=== PATIENT | male | born 1965 | race Caucasian/White ===

== ENCOUNTER 2023-03-26 09:14 | Emergency (ER) | payer OTHER ==
[~2023-03-26] VITALS: Ht 167.6 cm; Wt 59.0 kg
[2023-03-26 09:22] VITALS: O2SAT 100
[2023-03-26] MEDS ORDERED: ACETAMINOPHEN 325MG TABLET PO ONE (09:45)
[2023-03-26] MEDS ORDERED: TOPUD PO (11:39)
[2023-03-26 13:41] VITALS: BP 142/87; PULSE 84; RESP 16; TEMP 98.5
== END 2023-03-26 14:17 ==
LOC: ER 09:14
DX: S52.601A Unspecified fracture of lower end of right ulna, initial encounter for closed fracture (principal); X58.XXXA Exposure to other specified factors, initial encounter; Y93.89 Activity, other specified; Y92.89 Other specified places as the place of occurrence of the external cause; Y99.8 Other external cause status
CPT/HCPCS: 29105; 73030; 73070; 73090; 99284